=== PATIENT | female | born 1945 | race African-American/Black ===

== ENCOUNTER 2016-03-04 17:45 | Emergency (ER) | payer OTHER ==
[2016-03-04 17:56] VITALS: BP 117/65; PULSE 75; TEMP 98.6; BMI 27.6
--- NOTE | 2016-03-04 20:51 | PDOC ---
History of Present Illness - General Chief Complaint: Injury Stated Complaint: FALL Time Seen by Provider: 03/04/16 19:17 History Source: Patient Exam Limitations: No Limitations - History of Present Illness Initial Comments: 03/04/16 20:46 CC tripped and fell today hitting mouth and right arm and left knee Occurred: reports: just prior to arrival Severity: reports: mild Pain Location: reports: face, lower extremity, upper extremity Method of Injury: Yes: direct blow, fall Associated Symptoms (Fall): denies symptoms Past History - Past Medical History Allergies/Adverse Reactions: Allergies Allergy/AdvReac Type Severity Reaction Status Date / Time No Known Allergies Allergy Verified 03/04/16 17:56 Asthma: Yes HTN: Yes Hypercholesterolemia: Yes - Surgical History Abdominal Surgery: Yes - Psycho/Social/Smoking Cessation Hx Anxiety: No Suicidal Ideation: No Smoking History: Never smoked Hx Alcohol Use: No Drug/Substance Use Hx: No Substance Use Type: None Review of Systems - Review of Systems Constitutional: No: Symptoms Reported, Chills, Fever, Malaise HEENTM: Yes: Other (hit face) Respiratory: No: Symptoms reported, Cough Cardiac (ROS): No: Symptoms Reported Musculoskeletal: Yes: Joint Pain, Joint Swelling. No: Neck Pain, Joint Stiffness Neurological: No: Symptoms reported, Headache, Numbness, Paresthesia, Tingling *Physical Exam - Vital Signs Last Vital Signs Temp Pulse Resp BP Pulse Ox 98.6 F 75 20 117/65 98 03/04/16 17:48 03/04/16 17:48 03/04/16 17:48 03/04/16 17:48 03/04/16 17:48 - Physical Exam General Appearance: Yes: Appropriately Dressed. No: Apparent Distress HEENT: positive: Other (tender to upper left center incisor, with abrasion to upper center lip) Neck: negative: Tender, Rigid, Tender lateral, Tender midline Respiratory/Chest: positive: Lungs Clear. negative: Chest Tender Cardiovascular: positive: Regular Rhythm, Regular Rate. negative: Murmur Lymphatic: negative: Adenopathy Musculoskeletal: positive: Other (tender right distal humerus, wrist, elbow; tender left patella; ). negative: Normal Inspection, CVA Tenderness Integumentary: positive: Normal Color, Dry, Warm Neurologic: positive: Alert, Normal Mood/Affect, Motor Strength 5/5. 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 NML intact, Fully Oriented, Normal Response ED Treatment Course - RADIOLOGY Radiology Studies Ordered: Category Date Time Status ELBOW-RIGHT [RAD] Stat Radiology 03/04/16 19:30 Taken HUMERUS-RIGHT [RAD] Stat Radiology 03/04/16 19:31 Taken KNEE 2 POS-LEFT [RAD] Stat Radiology 03/04/16 19:31 Taken WRIST- RIGHT [RAD] Stat Radiology 03/04/16 19:29 Taken Medical Decision Making - Medical Decision Making 03/04/16 20:50 03/04/16 21:49 xrays= negative at my reading will call pt if offical reading different; sling applied *DC/Admit/Observation/Transfer Diagnosis at time of Disposition: Abrasion of oral cavity Qualifiers: Encounter type: initial encounter Qualified Code(s): S00.512A - Abrasion of oral cavity, initial encounter - Discharge Dispostion Disposition: HOME Condition at time of disposition: Stable Admit: No - Patient Instructions Additional Instructions: please see dentist for dedicated xray of teeth this week
== END 2016-03-04 22:03 | disposition home or self-care (01) ==
LOC: JERFT 17:45 → JER 17:45 → JERFT 22:03
DX: S00.512A Abrasion of oral cavity, initial encounter (principal); W18.39XA Other fall on same level, initial encounter; Y93.9 Activity, unspecified; Y92.9 Unspecified place or not applicable; I10 Essential (primary) hypertension; E78.00 Pure hypercholesterolemia, unspecified; J45.909 Unspecified asthma, uncomplicated
CPT/HCPCS: 73060-TC-RT; 73070-TC-RT; 73110-TC-RT; 73560-TC-LT; 99281-25